=== PATIENT | male | born 1970 | race Two or more races ===

== ENCOUNTER 2019-02-04 09:26 | Day surgery (SDC) | payer BC ==
[~2019-02-04] VITALS: Ht 170.2 cm; Wt 72.3 kg
[~2019-02-04 09:26] MED LIST: LYSINE PO
--- NOTE | 2019-02-04 09:51 | NUR ---
[facility] Ambulatory in Day Surgery History, Chart, Medications and Allergies reviewed before start of procedure.Lungs clear T/O to Auscultation. Patient confirms NPO status and agrees with scheduled surgery. Patient States Post-Procedure ride home has been arranged.
--- NOTE | 2019-02-04 11:06 | NUR ---
REPORT OFF TO GAMALIEL RITTER RN.
--- NOTE | 2019-02-04 14:08 | NUR ---
PT INCISIONS X3 GLUED NO DRESSINGS, NO BLEEDING. AT BEDSIDE.
--- NOTE | 2019-02-04 15:13 | NUR ---
Discharge instructions reviewed with patient. Patient verbalizes understanding. Copy given to patient to take home. Patient up to Ambulate independently. Gait steady. Lungs clear T/O to Auscultation. Patient States Post-Procedure ride home has been arranged. Discharged via wheelchair to private car for ride home. ALL BELONINGS SENT HOME WITH PATIENT. PROVIDED PAIN MANAGEMENT EDUCATION.
== END 2019-02-04 23:38 | disposition home or self-care (01) ==
LOC: ORSCMMR 09:26 → ORD 11:00 → ORSCMMR 11:00
PROVIDERS: Surgery
PROC: 8E0W4CZ Robotic Assisted Procedure of Trunk Region, Percutaneous Endoscopic Approach (ICD-10-PCS; principal; 2019-02-04 11:00)
PROC: 0YU64JZ Supplement Left Inguinal Region with Synthetic Substitute, Percutaneous Endoscopic Approach (ICD-10-PCS; principal; 2019-02-04 11:00)
DX: K40.91 Unilateral inguinal hernia, without obstruction or gangrene, recurrent (principal)
CPT/HCPCS: 49651; S2900; A9270-GY; C1781; J0690; J1885; J2250; J2405; J2704; J3010; J7120